=== PATIENT | female | born 1985 | race Caucasian/White ===

== ENCOUNTER 2016-08-19 05:00 | Emergency (ER) | payer MEDICAID ==
[2016-08-19] MEDS ORDERED: IBUPROFEN 600 MG TABLET PO STA (05:29)
[2016-08-19] MEDS ORDERED: AMOX/CLAV 875 MG/125 MG TABLET PO STA (05:29)
== END 2016-08-19 05:50 | disposition home or self-care (01) ==
DX: J36 Peritonsillar abscess (principal)

== ENCOUNTER 2017-03-28 07:36 | Emergency (ER) | payer MEDICAID ==
[2017-03-28] MEDS ORDERED: DEXAMETHASONE 10 MG/ML VIAL PO STA (08:20)
[2017-03-28] MEDS ORDERED: KETOROLAC 60 MG/2 ML VIAL IM STA (08:20)
--- NOTE | 2017-03-28 08:22 | ED Physician Documentation ---
PD HPI HEADACHE - Stated complaint Stated Complaint: STIFF NECK/BUNCH/DIZZY - Chief complaint Chief Complaint: Heent - History obtained from History obtained from: Patient, Family - History of Present Illness Timing - onset: Last night Timing - onset during: Rest Timing - duration: Hours Timing - details: Gradual onset, Still present Location: Global Quality: Throbbing Associated symptoms: Stiff neck, Nausea, Vomiting. No: Fever, Weakness, Numbness, Syncope, Seizure, Eye pain, Vision changes Improved by: Rest Worsened by: Moving Contributing factors: No: Anticoagulated Similar symptoms before: Has not had sx before Recently seen: Not recently seen - Additional information Additional information: 31-year-old female mother of 3 has developed some stiffness to her neck beginning last night and this morning has awakened with a headache and some vomiting. Review of Systems Constitutional: denies: Fever, Chills, Myalgias, Fatigue, Sweats Eyes: denies: Decreased vision Ears: reports: Ear pain Nose: reports: Rhinorrhea / runny nose, Congestion Throat: denies: Sore throat Cardiac: denies: Chest pain / pressure, Palpitations Respiratory: reports: Cough. denies: Dyspnea GI: reports: Nausea, Vomiting. denies: Abdominal Pain : denies: Dysuria, Frequency Skin: denies: Rash Musculoskeletal: reports: Neck pain. denies: Back pain, Extremity pain Neurologic: reports: Headache. denies: Generalized weakness, Focal weakness, Numbness, Head injury, LOC PD PAST MEDICAL HISTORY - Past Medical History Cardiovascular: None Respiratory: None Neuro: None Endocrine/Autoimmune: None GI: Hiatal hernia - Past Surgical History Past Surgical History: Yes General: Cholecystectomy - Present Medications Home Medications: Ambulatory Orders Medication Instructions Recorded Confirmed Cyclobenzaprine [Flexeril] 10 mg PO TID PRN #20 tablet 03/28/17 Fluticasone [Flonase] 1 sprays LEXA DAILY 03/28/17 03/28/17 HYDROcod/ACETAM 5/325 [[place] 5/325] 1 - 2 ea PO Q6H PRN #15 tablet 03/28/17 - Allergies Allergies/Adverse Reactions: Allergies Allergy/AdvReac Type Severity Reaction Status Date / Time metoclopramide HCl * Allergy Hallucinati Verified 03/28/17 07:46 [From Reglan] ons - Social History Does the pt smoke?: No Smoking Status: Never smoker Does the pt drink ETOH?: No Does the pt have substance abuse?: No - Immunizations Immunizations are current?: Yes - POLST Patient has POLST: No PD ED PE NORMAL - Vitals Vital signs reviewed: Yes (normal ) - General General: No acute distress, Well developed/nourished, Other (The patient moves her head slowly and appears to be in pain with movement of the neck. ) - HEENT HEENT: Atraumatic, PERRL, EOMI, Ears normal, Moist mucous membranes, Pharynx benign, Dentition benign - Neck Neck: No bony TTP, Other (There is tenderness to the paraspinous muscles bilaterally at the insertion to the occiput. There is no significant adenopathy. Flexion, extension and rotation are all involved. ) - Cardiac Cardiac: RRR, No murmur - Respiratory Respiratory: No respiratory distress, Clear bilaterally - Abdomen Abdomen: Soft, Non tender - Back Back: No CVA TTP, No spinal TTP - Derm Derm: Normal color, No rash - Extremities Extremities: No deformity, No edema - Neuro Neuro: Alert and oriented X 3, cargo mate 2-12 intact, No motor deficit, No sensory deficit, Normal speech - Psych Psych: Normal mood, Normal affect Results - Vitals Vitals: Vital Signs - 24 hr 03/28/17 03/28/17 07:42 10:32 Temperature 36.9 C Heart Rate 73 75 Respiratory 16 16 Rate Blood Pressure 129/79 126/70 O2 Saturation 98 96 Oxygen O2 Source Room air PD MEDICAL DECISION MAKING - ED course Complexity details: considered differential, d/w patient, d/w family ED course: 31 y/o female with a headache and stiff neck appears to have spastic torticollis and is administered decadron, and toradal. She has improvement with this and we did discuss LP for viral meningitis. She does not feel otherwise ill. Feels like it is just a muscle problem and with shared decision making we opted to forego an LP at this juncture. Departure - Departure Disposition: 01 Home, Self Care Clinical Impression: Spastic torticollis Condition: Stable Instructions: Torticollis Follow-Up: Candy Quezada ARNP [Primary Care Provider] - Prescriptions: Cyclobenzaprine [Flexeril] 10 mg PO TID PRN #20 tablet PRN Reason: Spasms HYDROcod/ACETAM 5/325 [[place] 5/325] 1 - 2 ea PO Q6H PRN #15 tablet PRN Reason: Pain Forms: Activity restrictions
[2017-03-28] MEDS ORDERED: KETOROLAC 60 MG/2 ML VIAL ONE (08:49)
[2017-03-28] MEDS ORDERED: DEXAMETHASONE 10 MG/ML VIAL ONE (08:49)
[2017-03-28] MEDS ORDERED: CHERRY SYRUP 10 ML UDC PO ONE (08:50)
[2017-03-28 11:47] VITALS: BP 139/80
== END 2017-03-28 11:51 | disposition home or self-care (01) ==
LOC: ED 07:36
DX: G24.3 Spasmodic torticollis (principal)
CPT/HCPCS: 96372; 99283; 99284; A9270

== ENCOUNTER 2017-07-07 10:01 | Outpatient (CLI) | payer MEDICAID ==
[2017-07-07 18:54] LABS: BASOPHILS % (AUTO) 0.4 %; EOSINOPHILS # (AUTO) 0.1 10^3/uL (0.0-0.7); EOSINOPHILS % (AUTO) 1.3 %; HCT - HEMATOCRIT 41.5 % (37.0-47.0); HGB - HEMOGLOBIN 13.5 g/dL (12.0-16.0); LYMPHOCYTES # (AUTO) 2.4 10^3/uL (1.5-3.5); LYMPHOCYTES % (AUTO) 22.7 %; MEAN CORPUSCULAR HEMOGLOBIN 27.5 pg (27.0-31.0); MEAN CORPUSCULAR HGB CONC 32.5 g/dL (32.0-36.0); MEAN CORPUSCULAR VOLUME 84.5 fL (81.0-99.0); MEAN PLATELET VOLUME 8.4 fL (7.9-10.8); MONOCYTES # (AUTO) 0.7 10^3/uL (0.0-1.0); MONOCYTES % (AUTO) 7.1 %; NEUTROPHILS # (AUTO) 7.1 10^3/uL (1.5-6.6); NEUTROPHILS % (AUTO) 68.5 %; RED BLOOD COUNT 4.92 10^6/uL (4.20-5.40); RED CELL DISTRIBUTION WIDTH 14.3 % (12.0-15.0); UNCORRECTED WHITE BLOOD COUNT 10.4 x10^3/uL; WHITE BLOOD COUNT 10.4 x10^3/uL (4.8-10.8)
[2017-07-07 20:21] LABS: ALBUMIN/GLOBULIN RATIO 1.2 (1.0-2.2); BILIRUBIN,TOTAL 0.5 mg/dL (0.2-1.0); BUN - BLOOD UREA NITROGEN 6 mg/dL (6-20); CARBON DIOXIDE - CO2 24 mmol/L (21-32); CHLORIDE 103 mmol/L (101-111); CREATININE 0.8 mg/dL (0.4-1.0); GFR - MDRD 85 (>89); GLUCOSE 93 mg/dL (70-100); POTASSIUM 3.7 mmol/L (3.5-5.0); SODIUM 137 mmol/L (135-145); TOTAL PROTEIN 7.5 g/dL (6.7-8.2)
== END 2017-07-07 10:02 | disposition home or self-care (01) ==
LOC: LAB.F 10:01
PROVIDERS: ATTEND Physician Assistant Medical
DX: Z00.00 Encounter for general adult medical examination without abnormal findings (principal); Z13.29 Encounter for screening for other suspected endocrine disorder; H92.03 Otalgia, bilateral
CPT/HCPCS: 36415; 80053; 84443; 85025

== ENCOUNTER 2017-07-12 08:12 | Outpatient (CLI) | payer OTHER ==
--- NOTE | 2017-07-12 09:42 | XRAY Report ---
THREE-VIEW SINUSES: 07/12/2017 CLINICAL INDICATION: Sinus headache. FINDINGS: AP, Elise, lateral views of the paranasal sinuses demonstrate normal aeration. The nasal septum is midline. No osseous destruction is seen. IMPRESSION: NORMAL PARANASAL SINUSES. JOB #: [id number] EXT JOB #:[id number]
== END 2017-07-12 08:13 | disposition home or self-care (01) ==
LOC: DI 08:12
PROVIDERS: ATTEND Physician Assistant Medical
DX: R51 Headache (principal); H73.892 Other specified disorders of tympanic membrane, left ear; H73.899 Other specified disorders of tympanic membrane, unspecified ear; H92.03 Otalgia, bilateral
CPT/HCPCS: 70220

== ENCOUNTER 2018-12-21 16:37 | Outpatient (CLI) | payer SELFPAY ==
--- NOTE | 2018-12-21 19:10 | Ultrasound Report ---
Reason: MENORRHAGIA Procedure Date: 12/21/2018 Accession Number: [id number] / [id number] Procedure: US - Pelvic w/Transvaginal CPT Code: FULL RESULT: EXAM: PELVIC ULTRASOUND EXAM DATE: 12/21/2018 05:10 PM. CLINICAL HISTORY: MENORRHAGIA. 33-year-old female with LMP 12/01/2018. COMPARISON: OB FIRST TRIMESTER 11/03/2015 12:49 PM. TECHNIQUE: Realtime transabdominal pelvic scan performed to identify the uterus and adnexa and as an overview of other pelvic structures, followed by transvaginal scan to provide greater detail of the uterus and adnexa, with static image documentation. FINDINGS: Uterus: 9.5 x 3.8 x 5.9 cm, volume 111 cc. Anteverted position. Normal overall size and echotexture. Masses: None. Endometrium: 7 mm. Normal. Cervix: Unremarkable. Right Ovary: 3.1 x 1.8 x 1.5 cm, volume 4.3 cc. Normal echotexture and blood flow. Left Ovary: 4.8 x 3.1 x 4.3 cm, volume 28 cc. 4.4 x 3.0 x 3.8 cm simple cyst. Normal blood flow. Free Fluid: None. Other: None. IMPRESSION: 1. Normal sized uterus without fibroids. 2. Endometrium normal in appearance and thickness at 7 mm. 3. 4.4 cm simple left ovarian cyst. Recommend 6 week ultrasound follow-up to ensure resolution. RADIA
== END 2018-12-21 16:38 | disposition home or self-care (01) ==
LOC: DI 16:37
PROVIDERS: ATTEND Obstetrics & Gynecology
DX: N83.292 Other ovarian cyst, left side (principal)
CPT/HCPCS: 76830; 76856

== ENCOUNTER 2020-03-28 12:34 | Outpatient (CLI) | payer OTHER ==
--- NOTE | 2020-03-30 09:05 | MRI Report ---
PROCEDURE: Knee LT W/O INDICATIONS: LEFT KNEE PAIN TECHNIQUE: Noncontrast sagittal PD fast spin echo and T2 fast spin echo with fat saturation, sagittal 3-D gradie nt sequence with fat saturation; coronal T1 spin echo and PD fast spin echo with fat saturation, and axial PD fast spin echo with fat saturation through the knee. COMPARISON: None. FINDINGS: Image quality: Excellent. Menisci: There is mild blunting and truncation of the free margin of the medial meniscal body although no disc rete intrasubstance signal changes seen Marked truncation and blunting of the free margin of the lateral meniscal body also noted. There is a lso a suggestion of a small 1-2 mm intrameniscal cyst involving the anterior horn on image 9/601, lesly ge 14/901. Cruciate ligaments: Anterior cruciate ligament appears intact. Posterior cruciate ligament appears intact. Medial structures: The medial collateral ligament appears intact. The semimembranosus tendon appears intact. Visualized portions of the pes anserinus tendons appear normal. No abnormal bursal fluid. Lateral structures: Lateral collateral ligament appears grossly intact. Biceps femoris tendon appears intact. Iliotibial band within normal limits. Popliteus tendon within normal limits. Anterior structures: Mild patellar tendinopathy, with prepatellar and superficial infrapatellar edema. The quadriceps tendon appears intact. Thickening of the lateral patellofemoral ligament is noted. The medial patellofemoral ligament appear s grossly intact There is lateral subluxation of the patella, probably chronic. There is also patella michael appearance. Hoffa's fat pad unremarkable. Bones and cartilage: No bone marrow contusions or fractures. Within the medial compartment, no definite focal cartilage defect Within the lateral compartment, no focal cartilage defect. Mild diffuse partial thickness loss of the femoral cartilage Within the patellofemoral compartment, near full-thickness cartilage loss overlying the lateral em lar facet. Femoral trochlear cartilage appears grossly intact. Joint space: No joint effusion. Ta's cyst is noted measuring approximately 3-4 cm in the cephalocaudad dimension. No specific evidence of loose body identified. IMPRESSION: Mild patellar tendinopathy with adjacent fluid/edema Truncation of the free margin of the body of the lateral meniscus. Additionally, 1-2 mm small intrame niscal cyst in the anterior horn of the lateral meniscus of unknown clinical significance. Please cor relate with exam findings. Truncation and fraying of the free margin of the body of the medial meniscus. Ta's cyst Chronic appearing sprain of the lateral patellofemoral ligament. Patellar michael appearance in addition to lateral subluxation of the patella Reviewed by: Jack Chavez MD on 03/30/2020 9:04 AM PDT Approved by: Jack Chavez MD on 03/30/2020 9:04 AM PDT Station ID: [id number]
== END 2020-03-28 12:35 | disposition home or self-care (01) ==
LOC: DI 12:34
PROVIDERS: ATTEND Nurse Practitioner Family
DX: M23.042 Cystic meniscus, anterior horn of lateral meniscus, left knee (principal); M71.22 Synovial cyst of popliteal space [Baker], left knee; M67.962 Unspecified disorder of synovium and tendon, left lower leg

== ENCOUNTER 2020-04-06 12:57 | Outpatient (CLI) | payer OTHER | END 2020-04-06 23:59 | disposition home or self-care (01) | LOC: LAB.R 12:57 | PROVIDERS: ATTEND Registered Nurse | DX: Z20.828 Contact with and (suspected) exposure to other viral communicable diseases (principal) ==

== ENCOUNTER 2021-01-14 19:43 | Outpatient (CLI) | payer OTHER ==
--- NOTE | 2021-01-15 12:51 | Ultrasound Report ---
PROCEDURE: Pelvic w/Transvaginal INDICATIONS: EXCESSIVE AND FREQUENT MENSTRUATION TECHNIQUE: Real-time scanning was performed of the pelvic organs, with image documentation. Additional endovagi nal scanning was necessary due to incomplete visualization of the adnexal and endometrial structures by transabdominal scanning. COMPARISON: 12/21/2018.. FINDINGS: No pathologic free abdominal or pelvic fluid. Uterus: Uterus is normal in size at 8.1 x 4.1 x 6.0 cm. The endometrium measures 3.4 mm in combined thickness. Uterus echotexture is normal. Ovaries: Right ovary measures 3.6 x 2.1 x 3.2 cm with total volume of 12.5 cc. There is a 1.1 x 1.1 x 1.3 cm dominant follicle in the right ovary. Left ovary measures 3.5 x 2.2 x 3.0 cm with total volu me of 12 cc. There is a 1.5 x 0.9 x 1.5 cm dominant follicle in the left ovary. IMPRESSION: 1. Uterus and endometrium are sonographically normal. 2. Ovaries are sonographically normal. 3. Small bilateral ovarian dominant functional follicles. Reviewed by: Kelsey Hines MD, PhD on 01/15/2021 12:50 PM PDT Approved by: Kelsey Hines MD, PhD on 01/15/2021 12:50 PM PDT Station ID: [id number]
== END 2021-01-14 19:44 | disposition home or self-care (01) ==
LOC: DI 19:43
PROVIDERS: ATTEND Nurse Practitioner Family
DX: N92.0 Excessive and frequent menstruation with regular cycle (principal)

== ENCOUNTER 2022-05-31 16:37 | Outpatient (CLI) | payer BC ==
--- NOTE | 2022-06-01 19:18 | Ultrasound Report ---
PROCEDURE: Pelvic w/Transvaginal INDICATIONS: Menorrhagia TECHNIQUE: Real-time scanning was performed of the pelvic organs, with image documentation. Additional endovagi nal scanning was necessary due to incomplete visualization of the adnexal and endometrial structures by transabdominal scanning. COMPARISON: 01/14/2021 FINDINGS: Normal size and appearance of the uterus. No uterine mass. Involuting exophytic left hemorrhagic cyst measuring 2.1 x 1.7 x 1.6 cm. Right ovary unremarkable. IMPRESSION: No uterine mass or endometrial anomaly demonstrated. No significant ovarian pathology identified. Reviewed by: Jose Maria Flores MD on 06/01/2022 7:16 PM PDT Approved by: Jose Maria Flores MD on 06/01/2022 7:16 PM PDT Station ID: [id number]
== END 2022-05-31 16:38 | disposition home or self-care (01) ==
LOC: DI 16:37
PROVIDERS: ATTEND Obstetrics & Gynecology
DX: N92.0 Excessive and frequent menstruation with regular cycle (principal)